=== PATIENT | male | born 1980 | race Caucasian/White ===

== ENCOUNTER 2018-06-26 16:47 | Emergency (ER) | payer BC ==
[~2018-06-26] VITALS: Ht 167.6 cm; Wt 85.3 kg
--- NOTE | 2018-06-26 17:16 | Diagnostic Imaging Report ---
Radiographs of the right hand - 3 views HISTORY: Pain COMPARISON: None available. FINDINGS: Bones: No acute displaced fracture. Osseous alignment is within normal limits. Joints: Scattered degenerative change. Soft tissues: Soft tissue swelling IMPRESSION: Scattered degenerative change and soft tissue swelling. Signed by: Dr. [place] A[place]re M.D. on 06/26/2018 5:13 PM
[2018-06-26] MEDS ORDERED: KETOROLAC TROMETHAMINE 60 MG/2 ML VIAL IM ONE (17:45)
== END 2018-06-26 17:41 | disposition home or self-care (01) ==
LOC: FSED 16:47
DX: S60.221A Contusion of right hand, initial encounter (principal); W22.09XA Striking against other stationary object, initial encounter; Y92.008 Other place in unspecified non-institutional (private) residence as the place of occurrence of the external cause; X83.8XXA Intentional self-harm by other specified means, initial encounter; Z85.828 Personal history of other malignant neoplasm of skin
CPT/HCPCS: 73130; 99284; J1885